=== PATIENT | female | born 1975 | race African-American/Black ===

== ENCOUNTER → 2016-07-28 | Outpatient (CLI) | payer MEDICAID, OTHER ==
[2016-06-21 08:58] VITALS: BP 102/49
[~2016-07-28] MED LIST: CLIN300C86 PO; METH-37 PO; PRED50TA PO; PROAIR HFA8.5 GM IH; SULF1TAB24 PO; TRAM-29 PO; VALS1TAB22 PO
--- NOTE | 2016-07-28 11:14 | RAD ---
EXAM: Pelvic sonogram. HISTORY: Irregular menstruation. TECHNIQUE: Transabdominal sonographic imaging of the pelvis was performed. COMPARISON: None. FINDINGS: The uterus measures 9.6 x 5.3 cm. The endometrial stripe measures 6.4 mm. The right ovary measures 4.0 x 1.9 x 2.3 cm. The left ovary measures 3.2 x 2.5 x 1.8 cm. There is normal blood flow within both ovaries. There is a 1.8 cm dominant right ovarian follicular cyst. There is a small amount of pelvic free fluid. IMPRESSION: 1. 1.8 cm dominant right ovarian follicular cyst. 2. Small amount of nonspecific pelvic free fluid.
--- NOTE | 2016-07-28 11:38 | RAD ---
EXAM: DIGITAL SCREEN BILAT W/CAD. HISTORY: Screening. COMPARISON: None, this is a baseline. FINDINGS: Digital mammography was performed. Computer-aided detection (CAD) was utilized. The breast parenchyma demonstrates scattered fibroglandular densities (tissue density B). No suspicious microcalcifications or architectural distortion is identified in either breast. The lateral left breast demonstrates a fairly broad focal asymmetry, which can be seen on the CC and MLO views, although on one of the MLO views, focal asymmetry is less evident. IMPRESSION: Lateral left breast demonstrate a fairly broad focal asymmetry. This might represent asymmetric breast parenchyma. Recommend spot compression views (and ultrasound if abnormality persists). BI-RADS CATEGORY: 0 INCOMPLETE: NEEDS ADDITIONAL IMAGING EVALUATION AND/OR PRIOR MAMMOGRAMS FOR COMPARISON. RECOMMENDED FOLLOW-UP: ADD ADDITIONAL IMAGING PQRS compliance statement: Patient information was entered into a reminder system with a target due date for the next mammogram. Mammography is a sensitive method for finding small breast cancers, but it does not detect them all and is not a substitute for careful clinical examination. A negative mammogram does not negate a clinically suspicious finding and should not result in delay in biopsying a clinically suspicious abnormality. "Our facility is accredited by the [employer] Mammography Program."
== END | disposition home or self-care (01) ==
LOC: US 10:39
PROVIDERS: ATTEND Family Medicine
DX: Z12.31 Encounter for screening mammogram for malignant neoplasm of breast (principal); N92.6 Irregular menstruation, unspecified; N83.01 Follicular cyst of right ovary
CPT/HCPCS: 76856; G0202; 77052; 77067

== ENCOUNTER 2016-09-18 19:38 | Emergency (ER) | payer OTHER ==
[~2016-09-18] VITALS: Ht 160 cm; Wt 86.2 kg
[2016-09-18 20:02] VITALS: BP 166/83
--- NOTE | 2016-09-18 20:10 | PHYS DOC ---
Past Medical History Past Medical History: Asthma, Diabetes-Type II, Hypertension, Other Additional Past Medical Histor: medication non-compliance Past Surgical History: No Surgical History Alcohol Use: Occasionally Drug Use: None Adult General Chief Complaint Chief Complaint: MECHANICAL FALL HPI HPI Patient is a 41 year old female who presents emergency Department today with complaint of left anterior lateral chest wall pain secondary to a fall approximate 4 hours prior to arrival. Patient states that she stepped on some uneven concrete at her house which causes her to fall onto her left side. She denies striking her head or loss of consciousness. She denies any other injuries or concerns at this time. Patient denies any previous history of broken ribs. She denies any history of bone forming disorders. Review of Systems Review of Systems Constitutional: Denies fever or chills [] Eyes: Denies change in visual acuity, redness, or eye pain [] HENT: Denies nasal congestion or sore throat [] Respiratory: Denies cough or shortness of breath [] Cardiovascular: No additional information not addressed in HPI [] GI: Denies abdominal pain, nausea, vomiting, bloody stools or diarrhea [] : Denies dysuria or hematuria [] Musculoskeletal: Denies back pain or joint pain [] Integument: Denies rash or skin lesions [] Neurologic: Denies headache, focal weakness or sensory changes [] Endocrine: Denies polyuria or polydipsia [] Current Medications Current Medications Current Medications Medications (Trade) Dose Ordered Sig/El Start Time Stop Time Status Last Admin Dose Admin Acetaminophen/ Hydrocodone Bitart (Lortab 5/325) 1 tab 1X ONCE 09/18/16 20:30 09/18/16 20:31 Ibuprofen (Motrin) 600 mg 1X ONCE 09/18/16 20:30 09/18/16 20:31 Allergies Allergies Allergies Coded Allergies Type Severity Reaction Last Updated Verified Penicillins Allergy Mild hives 02/23/14 Yes codeine Adverse Reaction Intermediate nausea 08/29/14 Yes Physical Exam Physical Exam Constitutional: Well developed, well nourished, no acute distress, non-toxic appearance. HENT: Normocephalic, atraumatic, bilateral external ears normal, oropharynx moist, no oral exudates, nose normal. [] Eyes: PERRLA, EOMI, conjunctiva normal, no discharge. [] Neck: Normal range of motion, no tenderness, supple, no stridor. [] Cardiovascular:Heart rate regular rhythm, no murmur [] Lungs & Thorax: Patient displays no evidence of respiratory distress or respiratory fatigue. Lungs are clear to auscultation bilaterally. Patient's chest is normal in appearance without any evidence of injury. There is tenderness to palpation to the left anterior lateral chest wall and the areas of the seventh, eighth and ninth ribs. There is no palpable defect, deformity, instability or crepitus. There is no paradoxical movement suggestive of a flail segment. Abdomen: Bowel sounds normal, soft, no tenderness, no masses, no pulsatile masses. [] Skin: Warm, dry, no erythema, no rash. [] Back: No tenderness, no CVA tenderness. [] Extremities: No tenderness, no cyanosis, no clubbing, ROM intact, no edema. [] Neurologic: Alert and oriented X 3, normal motor function, normal sensory function, no focal deficits noted. [] Psychologic: Affect normal, judgement normal, mood normal. [] Current Patient Data Vital Signs Vital Signs Date Time Temp Pulse Resp B/P Pulse Ox O2 Delivery O2 Flow Rate FiO2 09/18/16 20:02 78 16 97 Room Air EKG EKG [] Radiology/Procedures Radiology/Procedures PA and lateral chest x-ray are performed with adequate technique. There is no evidence of rib fractures, pneumothorax or consolidation/infiltrates. Course & Med Decision Making Course & Med Decision Making Pertinent Labs and Imaging studies reviewed. (See chart for details) [] Dragon Disclaimer Dragon Disclaimer This electronic medical record was generated, in whole or in part, using a voice recognition dictation system. Departure Departure Impression: Primary Impression: Chest wall contusion Disposition: HOME, SELF-CARE Condition: GOOD Referrals: CAM PIPER MD (PCP) Patient Instructions: Chest Contusion, [id number] Additional Instructions: 1. The x-rays of your chest today show no evidence of broken ribs, collapsed lung or pneumonia. 2. Take the medication as prescribed. You can also take ibuprofen every 8 hours to help with pain management. 3. Review the discharge instructions provided for self-care and reasons to return the emergency department. 4. Contact your primary care doctor in the morning to schedule follow-up appointment for reevaluation by Monday or . Scripts Hydrocodone/Apap 5-325 ([place] 5-325 Tablet)1 Each Tablet1 Tab PO PRN Q6HRS PRN PAIN #15 TAB Prov:TATUM ANAYA 09/18/16 TATUM ANAYA Sep 18, 2016 20:10
[2016-09-18] MEDS ORDERED: HYDR-971 PO (20:24)
[2016-09-18] MEDS ORDERED: HYDROCODONE/APAP 5/325MG TABLET. PO ONE (20:30)
[2016-09-18] MEDS ORDERED: IBUPROFEN 600 MG TABLET. PO ONE (20:30)
--- NOTE | 2016-09-19 07:41 | RAD ---
EXAM: Chest 2 views. HISTORY: Fall, chest pain, asthma, hypertension. COMPARISON: 10/01/2015. FINDINGS: Frontal and lateral views of the chest are obtained. There are no confluent infiltrates. There is no pneumothorax or pleural effusion. The heart is not enlarged. There is a calcified granuloma in the left base. IMPRESSION: 1. No confluent infiltrates.
== END 2016-09-18 20:31 | disposition home or self-care (01) ==
LOC: ER 19:38
DX: S20.212A Contusion of left front wall of thorax, initial encounter (principal); E11.9 Type 2 diabetes mellitus without complications; I10 Essential (primary) hypertension; J45.909 Unspecified asthma, uncomplicated; Z88.0 Allergy status to penicillin; Z88.5 Allergy status to narcotic agent; W19.XXXA Unspecified fall, initial encounter; Y93.89 Activity, other specified; Y92.89 Other specified places as the place of occurrence of the external cause; Y99.8 Other external cause status
CPT/HCPCS: 71020; 99284-25

== ENCOUNTER 2016-09-22 19:46 | Emergency (ER) | payer OTHER ==
[~2016-09-22] VITALS: Ht 160 cm; Wt 86.2 kg
[~2016-09-22 19:46] MED LIST changes: +HYDR-971 PO
[2016-09-22 20:00] VITALS: BP 167/79
[2016-09-22] MEDS ORDERED: HYDR-971 PO (20:03)
--- NOTE | 2016-09-22 20:03 | PHYS DOC ---
Past Medical History Past Medical History: Asthma, Diabetes-Type II, Hypertension, Other Additional Past Medical Histor: medication non-compliance Past Surgical History: No Surgical History Alcohol Use: Occasionally Drug Use: None Adult General Chief Complaint Chief Complaint: CHEST WALL PAIN [facility] HPI Patient is a 41 year old female presents emergency department stating that she was seen here on Monday after she had fallen. She states that she is having left rib pain and chest pain. She states that she was provided hydrocodone in which his been taken ibuprofen. She states that she is out of the ibuprofen and had taken the last dose earlier today. She states that she is having increased pain with deep breathing and coughing. She states that she called her primary care they are unable to get her into tomorrow. Patient states she is having extreme pain and needs to have relief now she denies any new falls or any new injuries. She has driven herself here to the emergency department. Review of Systems Review of Systems Constitutional: Denies fever or chills [] Eyes: Denies change in visual acuity, redness, or eye pain [] HENT: Denies nasal congestion or sore throat [] Respiratory: Denies cough or shortness of breath [] Cardiovascular: No additional information not addressed in HPI [] GI: Denies abdominal pain, nausea, vomiting, bloody stools or diarrhea [] : Denies dysuria or hematuria [] Musculoskeletal: Denies back pain or joint pain [] Integument: Denies rash or skin lesions [] Neurologic: Denies headache, focal weakness or sensory changes [] Allergies Allergies Allergies Coded Allergies Type Severity Reaction Last Updated Verified Penicillins Allergy Mild hives 02/23/14 Yes codeine Adverse Reaction Intermediate nausea 08/29/14 Yes Physical Exam Physical Exam Constitutional: Well developed, well nourished, no acute distress, non-toxic appearance. [] HENT: Normocephalic, atraumatic, bilateral external ears normal, oropharynx moist, no oral exudates, nose normal. [] Eyes: PERRLA, EOMI, conjunctiva normal, no discharge. [] Neck: Normal range of motion, no tenderness, supple, no stridor. [] Cardiovascular:Heart rate regular rhythm, no murmur [] Lungs & Thorax: Bilateral breath sounds clear to auscultation [] Skin: Warm, dry, no erythema, no rash. [] Back: No tenderness Extremities: No tenderness, no cyanosis, no clubbing, ROM intact, no edema. [] Neurologic: Alert and oriented X 3, normal motor function, normal sensory function, no focal deficits noted. [] Psychologic: Affect normal, judgement normal, mood normal. [] Current Patient Data Vital Signs Vital Signs Date Time Temp Pulse Resp B/P Pulse Ox O2 Delivery O2 Flow Rate FiO2 09/22/16 20:00 98.0 77 18 99 Room Air 98.0 EKG EKG [] Radiology/Procedures Radiology/Procedures [] Course & Med Decision Making Course & Med Decision Making Pertinent Labs and Imaging studies reviewed. (See chart for details) Patient continues to have tenderness along the left ribs. Patient did have a chest x-ray when she was here the last time which was negative. Patient does not have any bruising no crepitus or deformities noted along the chest wall. Patient was instructed to keep her follow-up appointment tomorrow. Signs symptoms to return back to emergency department as been provided. Patient was provided with hydrocodone to take at home to help her through the night for her follow-up visit tomorrow. Patient agrees with discharge instructions treatment regimens and follow-up recommendations. [] Dragon Disclaimer Dragon Disclaimer This electronic medical record was generated, in whole or in part, using a voice recognition dictation system. Departure Departure Impression: Primary Impression: Chest wall contusion Additional Impression: Inadequate pain control Disposition: 01 HOME, SELF-CARE Condition: STABLE Referrals: CAM PIPER MD (PCP) Patient Instructions: Chest Wall Pain, [id number] Additional Instructions: Home to rest. Medications as prescribed. Continue take ibuprofen 800 mg every 8 hours with food stop taking few develop an upset stomach. Hydrocodone has been provided for you this medication will cause drowsiness do not take any be alert and oriented. Follow-up through primary care physician tomorrow which she state you have an appointment. You may also use warm moist packs to the chest wall area. Splint your chest whenever you're up and a cough or sneeze Follow-up to primary care physician tomorrow. Return to emergency prior signs symptoms of become worse. Scripts Hydrocodone/Apap 5-325 ([place] 5-325 Tablet)1 Each Tablet1 Tab PO PRN Q6HRS PRN PAIN #8 TAB Prov:JEREMIAS DAVIS NP 09/22/16 Problem Qualifiers JEREMIAS DAVIS NP Sep 22, 2016 20:03
== END 2016-09-22 20:14 | disposition home or self-care (01) ==
LOC: ER 19:46
DX: S20.212D Contusion of left front wall of thorax, subsequent encounter (principal); J45.909 Unspecified asthma, uncomplicated; E11.9 Type 2 diabetes mellitus without complications; I10 Essential (primary) hypertension; Z88.5 Allergy status to narcotic agent; Z88.0 Allergy status to penicillin; W18.39XD Other fall on same level, subsequent encounter
CPT/HCPCS: 99283

== ENCOUNTER 2017-02-03 15:05 | Emergency (ER) | payer OTHER ==
[~2017-02-03] VITALS: Ht 160 cm; Wt 87.1 kg
[~2017-02-03 15:05] MED LIST changes: +CLIN300C8 PO; -CLIN300C86 PO; -TRAM-29 PO; +TRAM-48 PO
[2017-02-03 15:31] VITALS: BP 147/92
[2017-02-03] MEDS ORDERED: IPRATRPIUM/ALBUTEROL 0.5/2.5MG 3 ML NEBU. NEB ONE (15:45)
[2017-02-03] MEDS ORDERED: predniSONE 20 MG TABLET PO ONE (15:45)
[2017-02-03] MEDS ORDERED: PRED20TA PO (15:50)
[2017-02-03] MEDS ORDERED: AZIT250T PO (15:50)
--- NOTE | 2017-02-03 15:50 | PHYS DOC ---
Past Medical History Past Medical History: Asthma, Diabetes-Type II, Hypertension, Other Additional Past Medical Histor: medication non-compliance Past Surgical History: No Surgical History Alcohol Use: Occasionally Drug Use: None Adult General Chief Complaint Chief Complaint: ASTHMA HPI HPI Patient is a 41 year old female presents emergency department stating that she has been having a cough with occasional shortness of breath. Patient states that she's been using her inhalers and nebulizer machine at home. She has Tessalon Perles at home in which is not helping with the cough. Patient states that her primary care physician had sent her the prescription for the Tessalon Perles. Patient states that she continues to have a productive cough that is clear in color. She denies fever or chills. Review of Systems Review of Systems Constitutional: Denies fever or chills [] Eyes: Denies change in visual acuity, redness, or eye pain [] HENT: Denies nasal congestion or sore throat [] Respiratory: cough with shortness of breath [] Cardiovascular: No additional information not addressed in HPI [] GI: Denies abdominal pain, nausea, vomiting, bloody stools or diarrhea [] : Denies dysuria or hematuria [] Musculoskeletal: Denies back pain or joint pain [] Integument: Denies rash or skin lesions [] Neurologic: Denies headache, focal weakness or sensory changes [] Endocrine: Denies polyuria or polydipsia [] Current Medications Current Medications Current Medications Medications (Trade) Dose Ordered Sig/El Start Time Stop Time Status Last Admin Dose Admin Albuterol/ Ipratropium (Duoneb) 3 ml 1X ONCE 02/03/17 15:45 02/03/17 15:46 DC 02/03/17 16:27 3 ML Prednisone (Prednisone) 40 mg 1X ONCE 02/03/17 15:45 02/03/17 15:46 DC 02/03/17 15:52 40 MG Allergies Allergies Allergies Coded Allergies Type Severity Reaction Last Updated Verified Penicillins Allergy Mild hives 02/23/14 Yes codeine Adverse Reaction Intermediate nausea 08/29/14 Yes Physical Exam Physical Exam Constitutional: Well developed, well nourished, no acute distress, non-toxic appearance. [] HENT: Normocephalic, atraumatic, bilateral external ears normal, oropharynx moist, no oral exudates, nose normal. [] Eyes: PERRLA, EOMI, conjunctiva normal, no discharge. [] Neck: Normal range of motion, no tenderness, supple, no stridor. [] Cardiovascular:Heart rate regular rhythm, no murmur [] Lungs & Thorax: Bilateral breath sounds with decrease air movement Skin: Warm, dry, no erythema, no rash. [] Back: No tenderness Extremities: No tenderness, no cyanosis, no clubbing, ROM intact, no edema. [] Neurologic: Alert and oriented X 3, normal motor function, normal sensory function, no focal deficits noted. [] Psychologic: Affect normal, judgement normal, mood normal. [] Current Patient Data Vital Signs Vital Signs Date Time Temp Pulse Resp B/P (MAP) Pulse Ox O2 Delivery O2 Flow Rate FiO2 02/03/17 16:30 98 Room Air 02/03/17 15:31 98.8 85 16 98.8 EKG EKG [] Radiology/Procedures Radiology/Procedures [] Course & Med Decision Making Course & Med Decision Making Pertinent Labs and Imaging studies reviewed. (See chart for details) Patient will be provided with prednisone, and zithromax. She will be encouraged to continue the use of her nebulizer and inhaler. She was recommended to mucinex DM over the counter as directed by manufacture. Patient agrees with discharge instructions, treatment regimen and followup recommendations. BS with slight wheezes noted at this time. Patient states she is able to breath better. [] Dragon Disclaimer Dragon Disclaimer This electronic medical record was generated, in whole or in part, using a voice recognition dictation system. Departure Departure Impression: Primary Impression: Bronchitis Disposition: 01 HOME, SELF-CARE Condition: STABLE Referrals: CAM PIPER MD (PCP) Patient Instructions: Acute Bronchitis, [id number] Additional Instructions: Activity as tolerated Medication as prescribed Mucinex DM may also help with the cough. Take as directed by [employer] Followup with your primary care provider in 3-5 days Return to emergency department as needed for signs and symptoms that become worse. Scripts Azithromycin (ZITHROMAX) 250 Mg Tablet 250 MG PO DAILY for ANTI-BIOTIC, #6 TAB 0 Refills Take 2 tablets today then 1 tablet daily until gone Prov: JEREMIAS DAVIS APRN 02/03/17 Prednisone (PREDNISONE) 20 Mg Tablet 40 MG PO DAILY, #14 TAB Prov: JEREMIAS DAVIS SLEEP MANAGER 02/03/17 JEREMIAS DAVIS APRN Feb 03, 2017 15:50
== END 2017-02-03 16:55 | disposition home or self-care (01) ==
LOC: ER 15:05
DX: J40 Bronchitis, not specified as acute or chronic (principal); J45.909 Unspecified asthma, uncomplicated; E11.9 Type 2 diabetes mellitus without complications; I10 Essential (primary) hypertension; Z79.899 Other long term (current) drug therapy; Z88.0 Allergy status to penicillin; Z88.5 Allergy status to narcotic agent
CPT/HCPCS: 94250; 94640; 99283; J7512; J7620

== ENCOUNTER 2017-02-20 20:02 | Emergency (ER) | payer OTHER ==
[~2017-02-20 20:02] MED LIST changes: +AZIT250T PO; +PRED20TA PO
== END 2017-02-20 20:24 | disposition left against medical advice (07) ==
LOC: ER 20:02
DX: R06.02 Shortness of breath (principal); Z53.21 Procedure and treatment not carried out due to patient leaving prior to being seen by health care provider

== ENCOUNTER 2018-03-03 20:42 | Emergency (ER) | payer OTHER ==
[~2018-03-03] VITALS: Ht 160 cm; Wt 72.6 kg
[2018-03-03 22:21] VITALS: BP 112/65
[2018-03-03 22:24] LABS: BILIRUBIN,URINE NEGATIVE (NEG); CLARITY,URINE CLEAR; COLOR,URINE YELLOW; NITRITE,URINE NEGATIVE (NEG); PROTEIN,URINE NEGATIVE (NEG-TRACE); UROBILINOGEN,URINE 0.2 mg/dL (0.2 mg/dL)
[2018-03-03 22:30] LABS: RBC,URINE RARE /HPF (0-2); WBC,URINE 0 /HPF (0-4)
[2018-03-03 22:31] LABS: BACTERIA,URINE 0 /HPF (0-FEW); SQUAMOUS EPITHELIAL CELL,UR FEW /LPF
--- NOTE | 2018-03-03 23:20 | PHYS DOC ---
Past Medical History Past Medical History: Asthma, Diabetes-Type II, Hypertension, Other Additional Past Medical Histor: medication non-compliance Past Surgical History: No Surgical History Alcohol Use: None Drug Use: None Adult General Chief Complaint Chief Complaint: SYNCOPE HPI HPI Patient is a 42 year old [f__sex] who presents with [] Review of Systems Review of Systems Constitutional: Denies fever or chills [] Eyes: Denies change in visual acuity, redness, or eye pain [] HENT: Denies nasal congestion or sore throat [] Respiratory: Denies cough or shortness of breath [] Cardiovascular: No additional information not addressed in HPI [] GI: Denies abdominal pain, nausea, vomiting, bloody stools or diarrhea [] : Denies dysuria or hematuria [] Musculoskeletal: Denies back pain or joint pain [] Integument: Denies rash or skin lesions [] Neurologic: Denies headache, focal weakness or sensory changes [] Endocrine: Denies polyuria or polydipsia [] All other systems were reviewed and found to be within normal limits, except as documented in this note. Allergies Allergies Allergies Coded Allergies Type Severity Reaction Last Updated Verified Penicillins Allergy Mild hives 02/23/14 Yes codeine Adverse Reaction Intermediate nausea 08/29/14 Yes Physical Exam Physical Exam Constitutional: Well developed, well nourished, no acute distress, non-toxic appearance. [] HENT: Normocephalic, atraumatic, bilateral external ears normal, oropharynx moist, no oral exudates, nose normal. [] Eyes: PERRLA, EOMI, conjunctiva normal, no discharge. [] Neck: Normal range of motion, no tenderness, supple, no stridor. [] Cardiovascular:Heart rate regular rhythm, no murmur [] Lungs & Thorax: Bilateral breath sounds clear to auscultation [] Abdomen: Bowel sounds normal, soft, no tenderness, no masses, no pulsatile masses. [] Skin: Warm, dry, no erythema, no rash. [] Back: No tenderness, no CVA tenderness. [] Extremities: No tenderness, no cyanosis, no clubbing, ROM intact, no edema. [] Neurologic: Alert and oriented X 3, normal motor function, normal sensory function, no focal deficits noted. [] Psychologic: Affect normal, judgement normal, mood normal. [] Current Patient Data Vital Signs Vital Signs Date Time Temp Pulse Resp B/P (MAP) Pulse Ox O2 Delivery O2 Flow Rate FiO2 03/03/18 21:38 98.2 77 20 126/68 (87) 100 Room Air 98.2 Lab Values Laboratory Tests Test 03/03/18 21:15 03/03/18 21:32 Urine Collection Type Unknown Urine Color Yellow Urine Clarity Clear Urine pH 7.0 Urine Specific [place] 1.010 Urine Protein Negative mg/dL (NEG-TRACE) Urine Glucose (UA) Negative mg/dL (NEG) Urine Ketones (Stick) Negative mg/dL (NEG) Urine Blood Moderate (NEG) Urine Nitrite Negative (NEG) Urine Bilirubin Negative (NEG) Urine Urobilinogen Dipstick 0.2 mg/dL (0.2 mg/dL) Urine Leukocyte Esterase Negative (NEG) Urine RBC Rare /HPF (0-2) Urine WBC 0 /HPF (0-4) Urine Squamous Epithelial Cells Few /LPF Urine Bacteria 0 /HPF (0-FEW) POC Urine HCG, Qualitative Hcg negative (Negative) EKG EKG [] Radiology/Procedures Radiology/Procedures [] Course & Med Decision Making Course & Med Decision Making Pertinent Labs and Imaging studies reviewed. (See chart for details) [] Dragon Disclaimer Dragon Disclaimer This electronic medical record was generated, in whole or in part, using a voice recognition dictation system. Departure Departure Impression: Primary Impression: Dizziness Disposition: 01 HOME, SELF-CARE Condition: IMPROVED Referrals: CAM PIPER MD (PCP) Patient Instructions: Dizziness, [id number] KORY RAMIREZ DO Mar 03, 2018 23:20
== END 2018-03-03 23:24 | disposition home or self-care (01) ==
LOC: ER 20:42
DX: R42 Dizziness and giddiness (principal); E11.9 Type 2 diabetes mellitus without complications; I10 Essential (primary) hypertension; J45.909 Unspecified asthma, uncomplicated; Z88.0 Allergy status to penicillin; Z88.5 Allergy status to narcotic agent
CPT/HCPCS: 81001; 81025; 99283

== ENCOUNTER 2018-11-22 21:12 | Emergency (ER) | payer BC, OTHER ==
[~2018-11-22] VITALS: Ht 160 cm; Wt 69.4 kg
[~2018-11-22 21:12] MED LIST changes: +ALBU2.5V8 IH; +HYDR-3164 PO; -HYDR-971 PO; -PROAIR HFA8.5 GM IH
--- NOTE | 2018-11-22 22:29 | RAD ---
EXAM: Chest, 2 views. HISTORY: Wheezing. Cough. COMPARISON: 09/18/2016 FINDINGS: 2 views of the chest are obtained. There is left central predominant interstitial infiltrate. There is no pleural effusion or pneumothorax. The heart is normal in size. IMPRESSION: Left central predominant interstitial infiltrate. Follow-up to confirm resolution and exclude a central obstructing etiology. Electronically signed by: Safia Gorman MD (11/22/2018 10:26 PM) [facility]
[2018-11-22] MEDS ORDERED: predniSONE 20 MG TABLET PO ONE (22:30)
[2018-11-22] MEDS ORDERED: ALBUTEROL SULFATE 2.5 MG/3 ML NEBU. NEB ONE (22:30)
[2018-11-22] MEDS ORDERED: ONDANSETRON ODT 4 MG TAB.RAPDIS. PO ONE (23:00)
[2018-11-22 23:03] VITALS: BP 137/63
[2018-11-22] MEDS ORDERED: CEPH-264 PO (23:14)
[2018-11-22] MEDS ORDERED: ALBU2.5V8 INH (23:14)
[2018-11-22] MEDS ORDERED: AZIT1PAC9 PO (23:14)
[2018-11-22] MEDS ORDERED: PRED20TA PO (23:14)
--- NOTE | 2018-11-22 23:15 | PHYS DOC ---
Past Medical History Past Medical History: Asthma, Diabetes-Type II, Hypertension, Other Additional Past Medical Histor: medication non-compliance (CHANDLER XIOA) Past Surgical History: No Surgical History (CHANDLER XIAO) Alcohol Use: None Drug Use: None (CHANDLER XIAO) Adult General Chief Complaint Chief Complaint: MULTIPLE COMPLAINTS HPI HPI Patient is a 43 year old F who has asthma and works for [employer] and has been wheezing and coughing for the last few days. 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 Pt states today she has felt some chills and has more sinus congestion. She has mild nausea. (CHANDLER XIAO) Review of Systems Review of Systems Constitutional: Reports chills HENT: Denies sore throat. Reports sinus congestion and pressure. Respiratory: Reports cough, wheezing Cardiovascular: Denies chest pain GI: Denies abdominal pain, vomiting, bloody stools or diarrhea. Reports nausea. Musculoskeletal: Denies back pain or joint pain [] Integument: Denies rash or skin lesions [] Neurologic: Denies headache, focal weakness or sensory changes [] Endocrine: Denies polyuria or polydipsia [] All other systems were reviewed and found to be within normal limits, except as documented in this note. (CHANDLER XIAO) Current Medications Current Medications Current Medications Medications (Trade) Dose Ordered Sig/El Start Time Stop Time Status Last Admin Dose Admin Albuterol Sulfate (Ventolin Neb Soln) 2.5 mg 1X ONCE 11/22/18 22:30 11/22/18 22:31 DC 11/22/18 22:14 2.5 MG Ceftriaxone Sodium (Rocephin Im) 1 gm 1X ONCE 11/22/18 23:30 11/22/18 23:31 DC 11/22/18 23:18 1 GM Ondansetron HCl (Zofran Odt) 4 mg 1X ONCE 11/22/18 23:00 11/22/18 23:01 DC 11/22/18 22:56 4 MG Prednisone (Prednisone) 60 mg 1X ONCE 11/22/18 22:30 11/22/18 22:31 DC 11/22/18 22:35 60 MG (KORY RAMIREZ DO) Allergies Allergies Allergies Coded Allergies Type Severity Reaction Last Updated Verified Penicillins Allergy Mild hives 02/23/14 Yes codeine Adverse Reaction Intermediate nausea 08/29/14 Yes (KORY RAMIREZ DO) Physical Exam Physical Exam Constitutional: Well developed, well nourished, no acute distress, non-toxic appearance. [] HENT: Normocephalic, atraumatic, bilateral external ears normal, oropharynx moist, no oral exudates. Clear nasal drainage and B maxillary sinus tenderness. Eyes: PERRLA, EOMI, conjunctiva normal, no discharge. [] Neck: Normal range of motion, no tenderness, supple, no stridor. [] Cardiovascular:Heart rate regular rhythm, no murmur [] Lungs & Thorax: No respiratory distress. B scattered wheezes. Abdomen: Bowel sounds normal, soft, no tenderness, no masses, no pulsatile masses. [] Skin: Warm, dry, no erythema, no rash. [] Back: No tenderness, no CVA tenderness. [] Extremities: No tenderness, no cyanosis, no clubbing, ROM intact, no edema. [] Neurologic: Alert and oriented X 3, normal motor function, normal sensory function, no focal deficits noted. [] Psychologic: Affect normal, judgement normal, mood normal. [] (CHANDLER XIAO) Current Patient Data Vital Signs Vital Signs Date Time Temp Pulse Resp B/P (MAP) Pulse Ox O2 Delivery O2 Flow Rate FiO2 11/22/18 23:03 78 137/63 (87) 98 Room Air 11/22/18 21:35 99.5 24 99.5 (KORY RAMIREZ DO) EKG EKG [] (CHANDLER XIAO) Radiology/Procedures Radiology/Procedures CXR: Infiltrate (CHANDLER XIAO) Course & Med Decision Making Course & Med Decision Making Pertinent Labs and Imaging studies reviewed. (See chart for details) Pt with pneumonia on CXR. She appears well and vitals are stable. Pt is allergic to PCN but states she has tolerated Keflex. Rocephin given IM and will cover with Keflex, Zpack, Prednisone and Albuterol inhaler. Pt to f/u with PCP and return if symptoms worsen at anytime. (CHANDLER XIAO) Dragon Disclaimer Dragon Disclaimer This electronic medical record was generated, in whole or in part, using a voice recognition dictation system. (CHANDLER XIAO) Departure Departure Impression: Primary Impression: Pneumonia Disposition: 01 HOME, SELF-CARE Condition: IMPROVED Referrals: CAM PIPER MD (PCP) Patient Instructions: Pneumonia, Adult, [id number] Additional Instructions: Push fluids, rest and follow up with your primary care doctor. You received a dose of antibiotic, Rocephin, here in the ER this evening along with the prednisone. Start the prescriptions tomorrow. Scripts Albuterol Sulfate (Proair Hfa) 8.5 Gm Hfa.aer.ad 1 PUFF INH PRN Q6HRS PRN for SHORTNESS OF BREATH, #1 INHALER Prov: CHANDLER XIAO 11/22/18 Prednisone (PREDNISONE) 20 Mg Tablet 1 TAB PO BID, #10 TAB Prov: CHANDLER XIAO 11/22/18 Cephalexin (KEFLEX) 500 Mg Capsule 1 CAP PO TID, #30 CAP Prov: CHANDLER XIAO 11/22/18 Azithromycin (AZITHROMYCIN PACKET) 1 Gm Packet 1 PACKET PO ONCE, #1 PACKET Prov: CHANDLER XIAO 11/22/18 Attending Signature Attending Signature I have reviewed the PA/PROCESS MOLD TECHNICIAN's note and plan of care. I was available for consultation as needed during the patient's visit in the emergency department. I agree with the clinical impression, plan, and disposition. (KORY RAMIREZ DO) CHANDLER XIAO November 22, 2018 23:14 KORY RAMIREZ DO November 24, 2018 08:34
[2018-11-22] MEDS ORDERED: cefTRIAXone IM 1 GM VIAL IM ONE (23:30)
== END 2018-11-22 23:50 | disposition home or self-care (01) ==
LOC: ER 21:12
DX: J18.9 Pneumonia, unspecified organism (principal); J45.909 Unspecified asthma, uncomplicated; E11.9 Type 2 diabetes mellitus without complications; I10 Essential (primary) hypertension; Z88.0 Allergy status to penicillin; Z88.5 Allergy status to narcotic agent
CPT/HCPCS: 71046; 94640; 96372; 99284; J0696; J7512; J7613; Q0162

== ENCOUNTER 2019-03-28 22:21 | Emergency (ER) | payer BC ==
[~2019-03-28] VITALS: Ht 160 cm; Wt 83.9 kg
[~2019-03-28 22:21] MED LIST changes: +ALBU2.5V8 INH; +AZIT1PAC9 PO; +CEPH-264 PO
[2019-03-28 22:55] LABS: BILIRUBIN,URINE NEGATIVE (NEG); CLARITY,URINE CLEAR; COLOR,URINE YELLOW; NITRITE,URINE NEGATIVE (NEG); PH,URINE 6.5; PROTEIN,URINE NEGATIVE (NEG-TRACE); UROBILINOGEN,URINE 0.2 mg/dL (0.2 mg/dL)
[2019-03-28] MEDS ORDERED: IV NORMAL SALINE 1000ML BAG 1,000 ML IV SCH (23:00)
[2019-03-28] MEDS ORDERED: IPRATRPIUM/ALBUTEROL 0.5/2.5MG 3 ML NEBU. NEB ONE (23:00)
[2019-03-28 23:03] LABS: SQUAMOUS EPITHELIAL CELL,UR FEW /LPF
[2019-03-28 23:04] LABS: BACTERIA,URINE 0 /HPF (0-FEW); RBC,URINE RARE /HPF (0-2); WBC,URINE 0 /HPF (0-4)
[2019-03-28 23:23] LABS: BASO # 0.1 x10^3/uL (0.0-0.2); BASO % 1 % (0-3); EOS # 0.1 x10^3/uL (0.0-0.7); EOS % 0 % (0-3); HEMATOCRIT 35.3 % (36.0-47.0); HEMOGLOBIN 11.7 g/dL (12.0-15.5); LYMPH # 1.2 x10^3/uL (1.0-4.8); LYMPH % 9 % (24-48); MEAN CORPUSCULAR HEMOGLOBIN 28 pg (25-35); MEAN CORPUSCULAR HGB CONC 33 g/dL (31-37); MEAN CORPUSCULAR VOLUME 86 fL (79-100); MONO # 0.7 x10^3/uL (0.0-1.1); MONO % 5 % (0-9); NEUT # 11.9 x10^3/uL (1.8-7.7); NEUT % 85 % (31-73); PLATELET COUNT 217 x10^3/uL (140-400); RED CELL DISTRIBUTION WIDTH 17.6 % (11.5-14.5)
[2019-03-28 23:30] LABS: CREATININE 0.9 mg/dL (0.6-1.0); GFR 81.9; POTASSIUM 3.6 mmol/L (3.5-5.1)
--- NOTE | 2019-03-28 23:33 | RAD ---
CHEST PA LATERAL INDICATION: Cough. COMPARISON STUDY: 11/22/2018, 09/18/2016. FINDINGS: Lungs: Low lung volume. Bibasilar heterogeneous opacities. The tracheobronchial tree and hilar structures are normal. Pleura: No pleural effusion or pneumothorax. Heart and Mediastinum: Stable cardiomediastinal silhouette and great vessels. IMPRESSION: Low lung volume with bibasilar opacities, most likely subsegmental atelectasis although edema or infection could have a similar appearance in the appropriate clinical setting. Electronically signed by: Kody Escalona MD (03/28/2019 11:30 PM) [facility]
[2019-03-28 23:36] LABS: ALBUMIN 3.8 g/dL (3.4-5.0); TOTAL BILIRUBIN 0.4 mg/dL (0.2-1.0); TOTAL PROTEIN 7.5 g/dL (6.4-8.2)
[2019-03-29 00:35] VITALS: BP 145/67
[2019-03-29] MEDS ORDERED: HYDR5SUS PO (00:43)
[2019-03-29] MEDS ORDERED: LEVO500T59 PO (00:43)
--- NOTE | 2019-03-29 00:43 | PHYS DOC ---
Past Medical History Past Medical History: Asthma, Diabetes-Type II, Hypertension, Other Additional Past Medical Histor: medication non-compliance Past Surgical History: No Surgical History Alcohol Use: None Drug Use: Marijuana Adult General Chief Complaint Chief Complaint: MULTIPLE COMPLAINTS HPI HPI Patient is a 44-year-old female who presents with complaint of cough, congestion and low-grade fever. Patient states that her cough is been productive of yellow to green sputum. She does admit some chest tightness associated with coughing. She denies any actual chest pain though. Patient states his symptoms have been present for about a week now. She states that things are just not getting any better so wanted to come into the emergency room for further evaluation.[] Review of Systems Review of Systems Constitutional: Positive fever and chills [] Respiratory: Positive cough without shortness of breath [] Cardiovascular: No additional information not addressed in HPI [] GI: Denies abdominal pain, nausea, vomiting or diarrhea [] Integument: Denies rash or skin lesions [] Neurologic: Denies headache, focal weakness or sensory changes [] All other systems were reviewed and found to be within normal limits, except as documented in this note. Current Medications Current Medications Current Medications Medications (Trade) Dose Ordered Sig/El Start Time Stop Time Status Last Admin Dose Admin Albuterol/ Ipratropium (Duoneb) 3 ml 1X ONCE 03/28/19 23:00 03/28/19 23:01 DC 03/28/19 23:03 3 ML Levofloxacin (Levaquin) 750 mg 1X ONCE 03/29/19 00:45 03/29/19 00:46 UNV Sodium Chloride 1,000 ml @ 1,000 mls/hr Q1H 03/28/19 23:00 03/28/19 23:59 DC 03/28/19 23:20 1,000 MLS/HR Allergies Allergies Allergies Coded Allergies Type Severity Reaction Last Updated Verified Penicillins Allergy Mild hives 02/23/14 Yes codeine Adverse Reaction Intermediate nausea 08/29/14 Yes Physical Exam Physical Exam Constitutional: Well developed, well nourished, no acute distress, non-toxic appearance. [] HENT: Normocephalic, atraumatic, bilateral external ears normal, oropharynx moist, no oral exudates, nose normal. [] Eyes: PERRLA, EOMI, conjunctiva normal, no discharge. [] Neck: Normal range of motion, no tenderness, supple, no stridor. [] Cardiovascular:Heart rate regular rhythm, no murmur [] Lungs & Thorax: There are fine rhonchi noted in the right lung base to auscultation [] Abdomen: Bowel sounds normal, soft, no tenderness. [] Skin: Warm, dry, no erythema, no rash. [] Extremities: No tenderness, no cyanosis, no clubbing, ROM intact. [] Neurologic: Alert and oriented X 3, no focal deficits noted. [] Current Patient Data Vital Signs Vital Signs Date Time Temp Pulse Resp B/P (MAP) Pulse Ox O2 Delivery O2 Flow Rate FiO2 03/28/19 23:04 Room Air 03/28/19 22:30 100.0 93 18 184/77 (112) 99 100.0 Lab Values Laboratory Tests Test 03/28/19 22:30 03/28/19 22:31 03/28/19 23:10 POC Urine HCG, Qualitative Hcg negative (Negative) Urine Collection Type Unknown Urine Color Yellow Urine Clarity Clear Urine pH 6.5 Urine Specific [place] 1.010 Urine Protein Negative mg/dL (NEG-TRACE) Urine Glucose (UA) Negative mg/dL (NEG) Urine Ketones (Stick) Negative mg/dL (NEG) Urine Blood Negative (NEG) Urine Nitrite Negative (NEG) Urine Bilirubin Negative (NEG) Urine Urobilinogen Dipstick 0.2 mg/dL (0.2 mg/dL) Urine Leukocyte Esterase Negative (NEG) Urine RBC Rare /HPF (0-2) Urine WBC 0 /HPF (0-4) Urine Squamous Epithelial Cells Few /LPF Urine Bacteria 0 /HPF (0-FEW) White Blood Count 14.0 x10^3/uL (4.0-11.0) H Red Blood Count 4.10 x10^6/uL (3.50-5.40) Hemoglobin 11.7 g/dL (12.0-15.5) L Hematocrit 35.3 % (36.0-47.0) L Mean Corpuscular Volume 86 fL (79-100) Mean Corpuscular Hemoglobin 28 pg (25-35) Mean Corpuscular Hemoglobin Concent 33 g/dL (31-37) Red Cell Distribution Width 17.6 % (11.5-14.5) H Platelet Count 217 x10^3/uL (140-400) Neutrophils (%) (Auto) 85 % (31-73) H Lymphocytes (%) (Auto) 9 % (24-48) L Monocytes (%) (Auto) 5 % (0-9) Eosinophils (%) (Auto) 0 % (0-3) Basophils (%) (Auto) 1 % (0-3) Neutrophils # (Auto) 11.9 x10^3/uL (1.8-7.7) H Lymphocytes # (Auto) 1.2 x10^3/uL (1.0-4.8) Monocytes # (Auto) 0.7 x10^3/uL (0.0-1.1) Eosinophils # (Auto) 0.1 x10^3/uL (0.0-0.7) Basophils # (Auto) 0.1 x10^3/uL (0.0-0.2) Sodium Level 141 mmol/L (136-145) Potassium Level 3.6 mmol/L (3.5-5.1) Chloride Level 104 mmol/L (98-107) Carbon Dioxide Level 26 mmol/L (21-32) Anion Gap 11 (6-14) Blood Urea Nitrogen 8 mg/dL (7-20) Creatinine 0.9 mg/dL (0.6-1.0) Estimated GFR (Cockcroft-Gault) 81.9 BUN/Creatinine Ratio 9 (6-20) Glucose Level 98 mg/dL (70-99) Calcium Level 9.0 mg/dL (8.5-10.1) Total Bilirubin 0.4 mg/dL (0.2-1.0) Aspartate Amino Transferase (AST) 35 U/L (15-37) Alanine Aminotransferase (ALT) 30 U/L (14-59) Alkaline Phosphatase 58 U/L (46-116) Total Protein 7.5 g/dL (6.4-8.2) Albumin 3.8 g/dL (3.4-5.0) Albumin/Globulin Ratio 1.0 (1.0-1.7) Laboratory Tests 03/28/19 23:10 Laboratory Tests 03/28/19 23:10 EKG EKG [] Radiology/Procedures Radiology/Procedures [] Impressions: PROCEDURE: CHEST PA & LATERAL CHEST PA LATERAL INDICATION: Cough. COMPARISON STUDY: 11/22/2018, 09/18/2016. FINDINGS: Lungs: Low lung volume. Bibasilar heterogeneous opacities. The tracheobronchial tree and hilar structures are normal. Pleura: No pleural effusion or pneumothorax. Heart and Mediastinum: Stable cardiomediastinal silhouette and great vessels. IMPRESSION: Low lung volume with bibasilar opacities, most likely subsegmental atelectasis although edema or infection could have a similar appearance in the appropriate clinical setting. Electronically signed by: Kody Escalona MD (03/28/2019 11:30 PM) [facility] Course & Med Decision Making Course & Med Decision Making Pertinent Labs and Imaging studies reviewed. (See chart for details) [] Dragon Disclaimer Dragon Disclaimer This electronic medical record was generated, in whole or in part, using a voice recognition dictation system. Departure Departure Impression: Primary Impression: Bronchitis Disposition: 01 HOME, SELF-CARE Condition: STABLE Referrals: CAM PIPER MD (PCP) Patient Instructions: Acute Bronchitis, Form - Excuse from Work, School, or Physical Activity Scripts Hydrocodone/Chlorphen Polis (HYDROCODONE-CHLORPHENIRAM SUSP) 5 Ml Jayashree.er.12h 5 ML PO PRN Q12HR PRN for COUGH, #60 ML 0 Refills Prov: COLBY GALLEGOS Jr. DO 03/29/19 Levofloxacin (LEVAQUIN) 500 Mg Tablet 1 TAB PO DAILY, #10 TAB Prov: COLBY GALLEGOS Jr. DO 03/29/19 COLBY GALLEGOS Jr. DO Mar 29, 2019 00:43
[2019-03-29] MEDS ORDERED: ALBU2.5V14 NEB (00:51)
== END 2019-03-29 00:45 | disposition home or self-care (01) ==
LOC: ER 22:21
DX: J40 Bronchitis, not specified as acute or chronic (principal); E11.9 Type 2 diabetes mellitus without complications; I10 Essential (primary) hypertension; J45.909 Unspecified asthma, uncomplicated; Z88.0 Allergy status to penicillin; Z88.5 Allergy status to narcotic agent
CPT/HCPCS: 36415; 71046; 80053; 81001; 81025; 85025; 94640; 99285; J7030; J7620

== ENCOUNTER 2019-06-21 23:26 | Emergency (ER) | payer BC ==
[~2019-06-21] VITALS: Ht 161.3 cm; Wt 79.4 kg
[~2019-06-21 23:26] MED LIST changes: +ALBU2.5V14 NEB; +HYDR5SUS PO; +LEVO500T59 PO
[2019-06-21 23:39] VITALS: BP 163/70
[2019-06-21] MEDS ORDERED: OXYC-325 PO (23:47)
[2019-06-22] MEDS ORDERED: oxyCODONE/APAP 5/325 1 TAB TABLET PO ONE (00:30)
--- NOTE | 2019-06-22 03:05 | PHYS DOC ---
Past Medical History Past Medical History: Arthritis, Asthma, High Cholesterol, Hypertension Additional Past Medical Histor: CARPAL TUNNEL Past Surgical History: No Surgical History Additional Information: 07/18 PPD Alcohol Use: None Drug Use: None Adult General Chief Complaint Chief Complaint: UPPER EXTREMITY PAIN HPI HPI Patient is a 44 year old right-handed AA female who presents with right posterior shoulder pain, tenderness. Patient states she and her right anterior shoulder approximately one month ago while at work lifting. This evening, the patient older box fell sharp. Right posterior shoulder. Pain is worse with palpation, or movement. It is rated moderate to severe. Denies neck pain. No other acute symptoms or complaints[] Review of Systems Review of Systems Review symptoms as per history of present illness. All other review symptoms are negative. All other systems were reviewed and found to be within normal limits, except as documented in this note. Current Medications Current Medications Current Medications Medications (Trade) Dose Ordered Sig/El Start Time Stop Time Status Last Admin Dose Admin Oxycodone/ Acetaminophen (Percocet 5/325) 1 tab 1X ONCE 06/22/19 00:30 06/22/19 00:04 DC 06/22/19 00:02 1 TAB Allergies Allergies Allergies Coded Allergies Type Severity Reaction Last Updated Verified Penicillins Allergy Mild hives 02/23/14 Yes codeine Adverse Reaction Intermediate nausea 08/29/14 Yes Physical Exam Physical Exam Constitutional: Well developed, well nourished, no acute distress, non-toxic appearance. [] HENT: Normocephalic, atraumatic, bilateral external ears normal, oropharynx moist, no oral exudates, nose normal. [] Eyes: PERRLA, EOMI, conjunctiva normal, no discharge. [] Neck: Normal range of motion, no tenderness, supple, no stridor. [] Cardiovascular:Heart rate regular rhythm, no murmur [] Lungs & Thorax: Bilateral breath sounds clear to auscultation [] Extremities: R Shoulder, no swelling, bruising. Pain reproduces with range of motion and palpation. Patient weighs right arm against gravity. Pain reproduces with mechanical distraction[]. Neurologic: Alert and oriented X 3, normal motor function, normal sensory function, no focal deficits noted. [] Psychologic: Affect normal, judgement normal, mood normal. [] Current Patient Data Vital Signs Vital Signs Date Time Temp Pulse Resp B/P (MAP) Pulse Ox O2 Delivery O2 Flow Rate FiO2 06/22/19 00:02 16 100 Room Air 06/21/19 23:39 97.8 62 163/70 (101) 97.8 EKG EKG [] Radiology/Procedures Radiology/Procedures [] Course & Med Decision Making Course & Med Decision Making Pertinent Labs and Imaging studies reviewed. (See chart for details) [Symptoms consistent with rotator cuff-type injury. Recommendations are supportive care with work comp follow-up for further restrictions.] Dragon Disclaimer Dragon Disclaimer This electronic medical record was generated, in whole or in part, using a voice recognition dictation system. Departure Departure Impression: Primary Impression: Injury of right rotator cuff Disposition: HOME, SELF-CARE Condition: GOOD Patient Instructions: Rotator Cuff Injury Additional Instructions: Wear sling, apply ice to affected area and take ibuprofen for pain and Percocet as needed for additional relief. Do not use your right arm until cleared by your work comp physician or PCP. Follow-up with your work comp physician as soon as possible for reevaluation modification of work restrictions and limitations Scripts Oxycodone HCl/Acetaminophen (Percocet 5-325 mg Tablet) 1 Each Tablet 1 TAB PO QIDPRN PRN for PAIN MDD 4 Tablet(s) for 5 Days, #20 TAB 0 Refills Prov: JESS FIGUEROA DO 06/21/19 JESS FIGUEROA DO Jun 22, 2019 03:05
== END 2019-06-22 00:04 | disposition home or self-care (01) ==
LOC: ER 23:26
DX: S46.001A Unspecified injury of muscle(s) and tendon(s) of the rotator cuff of right shoulder, initial encounter (principal); M25.511 Pain in right shoulder; M19.90 Unspecified osteoarthritis, unspecified site; J45.909 Unspecified asthma, uncomplicated; E78.00 Pure hypercholesterolemia, unspecified; I10 Essential (primary) hypertension; Z88.0 Allergy status to penicillin; Z88.5 Allergy status to narcotic agent; X50.9XXA Other and unspecified overexertion or strenuous movements or postures, initial encounter; Y93.89 Activity, other specified; Y92.89 Other specified places as the place of occurrence of the external cause; Y99.0 Civilian activity done for income or pay
CPT/HCPCS: 99283

== ENCOUNTER → 2020-12-21 | Outpatient (CLI) | payer BC ==
[~2020-12-21] MED LIST changes: -CLIN300C8 PO; +CLIN300C9 PO; +OXYC-325 PO; -VALS1TAB22 PO; +VALS1TAB23 PO
--- NOTE | 2020-12-21 15:31 | RAD ---
EXAM: Obstetrics sonogram. HISTORY: Dysfunctional uterine bleeding. TECHNIQUE: Sonographic imaging of the pelvis was performed. COMPARISON: 07/28/2016. FINDINGS: The uterus is normal in size. The endometrial stripe measures 9.3 mm in thickness. The ovar ies are normal in size and demonstrate normal blood flow. There is a small amount of left adnexal angel e fluid. IMPRESSION: 1. Normal endometrial stripe thickness for the premenopausal status of the patient. 2. Small amount of nonspecific left adnexal free fluid. This can be physiologic in a premenopausal fe male. Electronically signed by: Safia Gorman MD (12/21/2020 3:28 PM) [id number]
== END ==
LOC: US 14:54
PROVIDERS: ATTEND Family Medicine
DX: N93.8 Other specified abnormal uterine and vaginal bleeding (principal)
CPT/HCPCS: 76830; 76856